=== PATIENT | female | born 1995 | race Caucasian/White ===

== ENCOUNTER 2021-06-07 08:25 | Outpatient (REF) | payer OTHER, SELFPAY ==
[2021-06-07 08:46] LABS: MANUAL DIFF FLAG NO
[2021-06-07 09:47] LABS: Basophils Absolute Auto 0.1 X10*3/uL (0.0-0.2); Basophils Percent Auto 0.7 % (0-2); Eosinophils Absolute Auto 0.2 X10*3/uL (0.0-0.4); Eosinophils Percent Auto 2.2 % (0-4); Hematocrit 39.8 % (37.0-47.0); Hemoglobin 13.2 g/dl (12.0-16.0); Imm Gran Abs Auto 0.02 X10*3/uL (0.00-0.03); Imm Gran Pct Auto 0.3 % (0.0-0.4); Lymphocytes Absolute Auto 1.8 X10*3/uL (1.2-4.9); Lymphocytes Percent Auto 24.3 % (20-40); Mean Corpuscular HGB Conc 33.2 g/dl (31.0-35.0); Mean Corpuscular Hemoglobin 29.7 pg (27.0-33.0); Mean Corpuscular Volume 89.4 fL (80.0-98.0); Mean Platelet Volume 11.3 fL (9.4-12.3); Monocytes Absolute Auto 0.5 X10*3/uL (0.1-1.2); Monocytes Percent Auto 6.5 % (2-11); Neutrophils Absolute Auto 4.8 x10*3/uL (2.0-8.3); Platelet Count 309 X10*3/uL (160-400); Red Blood Count 4.45 X10*6/uL (4.20-5.50); Red Cell Distribution Width 12.5 % (11.0-16.0); White Blood Count 7.3 X10*3/uL (4.8-10.8)
[2021-06-07 10:05] LABS: Iron 132 mcg/dL (30-160); Percent Iron Saturation 38 % (15-50); Total Iron Binding Capacity 350 mcg/dL (228-428); Unsaturated Iron Binding 218 ug/dL
[2021-06-07 10:32] LABS: Thyroid Stimulating Hormone 0.88 uIU/mL (0.32-4.0); Vitamin D 25-OH Total 33.5 ng/mL (>30)
[2021-06-07 10:53] LABS: T4 Thyroxine 8.3 ug/dL (4.5-12.0)
[2021-06-07 11:22] LABS: Folate 8.7 ng/mL (> or = 4.0); Vitamin B12 409 pg/mL (200-900)
== END 2021-06-07 08:26 | disposition home or self-care (01) ==
LOC: HO.LAB 08:25
PROVIDERS: PCP Physician Assistant; Visit Provider Physician Assistant
DX: D50.0 Iron deficiency anemia secondary to blood loss (chronic) (principal); F41.1 Generalized anxiety disorder; L63.9 Alopecia areata, unspecified
CPT/HCPCS: 36415; 82306; 82607; 82746; 83540; 84436; 84443; 85025

== ENCOUNTER 2023-11-09 16:44 | Outpatient (REF) | payer SELFPAY | END 2023-11-09 16:45 | disposition home or self-care (01) | LOC: HO.LNP 16:44 | PROVIDERS: Visit Provider Physician Assistant | DX: J03.80 Acute tonsillitis due to other specified organisms (principal) | CPT/HCPCS: 87070 ==